=== PATIENT | male | born 1940 | race Caucasian/White ===

== ENCOUNTER 2019-04-26 18:08 | Emergency (ER) | payer MEDICARE ==
[~2019-04-26] VITALS: Ht 177.8 cm; Wt 90.0 kg
[2019-04-26 18:16] VITALS: Ht 177.8 cm; Wt 90.0 kg
[2019-04-26] MEDS ORDERED: BACITRACIN 0.9 GM OINT TOP ONE (18:30)
[2019-04-26] MEDS ORDERED: DIPHTH/TET/ACEL PERTUSS (ADULT) 0.5 ML VIAL IM* ONE (18:30)
[2019-04-26 20:30] VITALS: BP 128/61; PULSE 67; RESP 22
--- NOTE | 2019-04-26 20:37 | ERD ---
ER Documentation Chief Complaint Chief Complaint BIBA 40 for syncopal episode while doing yard work HPI This is a 79-year-old male with a past medical history of COPD, coronary artery disease status post CABG who is presenting after a syncopal event. The patient was out in the heat using a lawnmower and doing yard work when he suddenly felt very faint. He went to sit down on the porch, but he slipped off the porch and hit his head. The patient does not know how long he was out for, but after he woke up, he felt very weak. He was able to crawl into the house and call an ambulance. The patient was given IV fluids in route to the hospital, and he reports significant improvement of his lightheadedness and weakness. The pa tient did sustain an abrasion to the right forehead. He endorses tenderness around the abrasion, but otherwise has no headache. He does not know when his last tetanus shot was. He has no vision changes. The patient did not have any focal deficits. He does not endorse any weakness or numbness or tingling to the face or extremities. He has no chest pain or trouble breathing. He is not diaphoretic. He is not nauseated. He does not endorse any other alleviating or exacerbating factors. ROS All systems reviewed and are negative except as per history of present illness. Allergies Allergies: Coded Allergies: Penicillins (Verified Allergy, Unknown, 04/26/19) PMhx/Soc History of Surgery: Yes (CABG) Anesthesia Reaction: No Hx Neurological Disorder: No Hx Respiratory Disorders: Yes (COPD) Hx Cardiac Disorders: Yes (Coronary artery disease) Hx Psychiatric Problems: No Hx Miscellaneous Medical Probl: Yes (Chronic kidney disease) Hx Alcohol Use: No Hx Substance Use: No Hx Tobacco Use: No Smoking Status: Never smoker FmHx Family History: No diabetes Physical Exam Vitals Vital Signs Date Temp Pulse Resp B/P (MAP) Pulse Ox O2 O2 Flow FiO2 Time Delivery Rate 04/26/19 68 14 116/60 99 Room Air 18:28 (78) 04/26/19 98.3 79 16 112/75 100 18:16 (87) Physical Exam Const: No apparent distress, well-developed, well-nourished Head: Normocephalic. Right forehead abrasion, no laceration. No enriquez sign. Eyes: Normal Conjunctiva. Extraocular movements intact. Pupils equal, round and reactive to light. No raccoon eyes ENT: Normal External Ears, Nose and Mouth. No hemotympanum. Neck: No midline cervical spine tenderness. Full range of motion. No meningismus. Resp: Clear to auscultation bilaterally, No wheezes, rales or rhonchi Cardio: Regular rate and rhythm. No murmurs, rubs or gallops Abd: Soft, non tender, non distended. Normal bowel sounds Skin: No petechiae or rashes Back: No midline tenderness. No step-offs or deformities. No CVA tenderness Ext: No cyanosis, or edema Neur: Awake and alert, oriented 4. Cranial nerves intact. No facial droop. Normal strength, sensation and coordination. Psych: Normal Mood and Affect Result Diagram: 04/26/19190004/26/191900 Results 24 hrs Laboratory Tests Test 04/26/19 19:01 White Blood Count 13.7 10^3/ul Red Blood Count 4.63 10^6/ul Hemoglobin 13.9 g/dl Hematocrit 39.8 % Mean Corpuscular Volume 86.0 fl Mean Corpuscular Hemoglobin 30.0 pg Mean Corpuscular Hemoglobin Concent 34.9 g/dl Red Cell Distribution Width 12.5 % Platelet Count 164 10^3/UL Mean Platelet Volume 10.5 fl Immature Granulocytes % 0.400 % Neutrophils % 87.6 % Lymphocytes % 6.0 % Monocytes % 4.9 % Eosinophils % 0.8 % Basophils % 0.3 % Nucleated Red Blood Cells % 0.0 /100WBC Immature Granulocytes # 0.050 10^3/ul Neutrophils # 12.0 10^3/ul Lymphocytes # 0.8 10^3/ul Monocytes # 0.7 10^3/ul Eosinophils # 0.1 10^3/ul Basophils # 0.0 10^3/ul Nucleated Red Blood Cells # 0.0 10^3/ul Sodium Level 139 mmol/L Potassium Level 4.3 mmol/L Chloride Level 105 mmol/L Carbon Dioxide Level 26 mmol/L Anion Gap 8 Blood Urea Nitrogen 39 mg/dl Creatinine 2.52 mg/dl Est Glomerular Filtrat Rate mL/min mL/min Glucose Level 116 mg/dl Calcium Level 9.5 mg/dl Troponin I < 0.012 ng/ml B-Type Natriuretic Peptide 271 PG/ML Current Medications Medications Dose Sig/Luba Start Time Status Last (Trade) Ordered Route PRN Stop Time Admin Dose Reason Admin Diphtheria/ 0.5 ml ONCE ONCE 04/26/19 DC 04/26/19 Tetanus/Acell IM* 18:30 04/26/19 18:36 Pertussis 18:31 (Adacel) Bacitracin 1 applic ONCE ONCE 04/26/19 DC 04/26/19 (Bacitracin TOP 18:30 04/26/19 18:36 Oint (Ud)) 18:31 Procedures/MDM MDM The patient's presentation warrants further investigation. Previous medical records, if available, were reviewed. LABS The patient's laboratory testing was obtained and reviewed. No emergent treatment was required unless described below. CBC: Leukocytosis, likely reactive, low clinical suspicion for an infection. Mild normocytic anemia, not emergent. No E/o thrombocytopenia Chemistry: No E/o severe acidosis or alkalosis or diabetic ketoacidosis. Creatinine is elevated with known chronic kidney disease. Troponin: No E/o acute ischemia BNP: No E/o heart failure EKG EKG read by me: Rate/Rhythm: Regular rate and rhythm at a rate of 67 Intervals: Normal QRS and QTc. Prolonged CO interval indicating a first- degree AV block [place]: Right shifted Impression: Nonspecific repolarization changes without evidence of acute ischemia or arrhythmia IMAGING Imaging and Radiology interpretation reviewed. CT Head FINDINGS: No acute intracranial hemorrhage is identified. There is no mass effect or midline shift. No extra-axial fluid collection is seen. The ventricles and sulci are within normal limits for size and configuration for the patient's provided age of 79-year is, generalized appropriate cerebral tissue loss is present. There is extensive low attenuation of the subcortical and periventricular white matter probably chronic small vessel ischemic disease but vasculitis and demyelination are differential diagnostic possibilities. The density of the brain is within normal limits. Brenner-white differentiation is preserved. The osseous structures are unremarkable. Chronic-appearing ethmoid and right sphenoid sinus mucosal thickening is present The mastoid air cells and remaining visualized paranasal sinuses are clear. Atherosclerotic calcification of the cavernous internal carotid arteries is present IMPRESSION: 1. Generalized age-appropriate cerebral tissue loss with extensive low attenuation of the cerebral white matter probably the sequela of chronic small vessel ischemia but without evidence for acute intracranial abnormality or mass effect. 2. Mild chronic-appearing ethmoid and sphenoid sinus disease. 3. Cavernous internal carotid artery atherosclerotic calcification. Electronically viewed and signed by Physician Omkar on 04/26/2019 19:26 CT C-Spine FINDINGS: Vertebral bodies: Stature is preserved at every level without evidence of compression deformity. The lordosis is straightened. There is normal mineralization and trabeculation. The predental space is mildly narrowed. Ant erior enthesopathy is minimal at C5-C7. The C1 ring is intact. Both occipital condyles are normal in position. Central canal and cervical spinal cord: No abnormal density within the spinal cord is evident and no intraspinal masses are delineated. C2-3: The disk is within normal limits. The facet joints are normal. The uncovertebral joints and foramina are unremarkable.No posterior element fracture is identified. C3-4: The disk is within normal limits. Severe right facet arthropathy is present with mild left facet degeneration and trace anterolisthesis. The uncovertebral joints and foramina are unremarkable.No posterior element fracture is identified C4-5: The disk is within normal limits. Severe left and mild right facet arthropathy is present. The uncovertebral joints and foramina are unremarkable.No posterior element fracture is identified C5-6: Moderate degenerative disc narrowing with osteophyte and disc complex asymmetric to the right. Moderate right and mild left facet arthropathy is present. Uncovertebral hypertrophy causes severe right foraminal stenosis the le ft foramen is patent .No posterior element fracture is identified C6-7: Mild to moderate degenerative disc narrowing with small osteophyte and disc complex without significant central canal stenosis. Severe left and moderate facet arthropathy is present. Right foraminal stenosis from disc materi al is suggested, the left foramen is believed to be patent .No posterior element fracture is identified C7-T1: The disk is within normal limits. The facet joints are normal. The uncovertebral joints and foramina are unremarkable.No posterior element fracture is identified Non spine related findings: No abnormalities of significance are seen. IMPRESSION: 1. There is no evidence of cervical spine fracture. 2. Degenerative disc narrowing is greatest at C5-6 and C6-7 without significant central canal stenosis, disc material is believed to contribute to right C6-7 foraminal stenosis and may correlate with the right C7 radiculopathy pattern. 3. Severe right foraminal stenosis at C5-6 caused by facet arthropathy and uncovertebral hypertrophy. 4. Trace anterolisthesis at C3-4 related to severe facet arthropathy greater on the right. 5. The lordosis is mildly straightened which may be from positioning but cannot exclude muscle spasm. Electronically viewed and signed by Physician Omkar on 04/26/2019 19:30 CXR FINDINGS: The cardiomediastinal silhouette is mildly enlarged . The lungs are clear. There is no evidence for pleural effusion, pneumothorax or pulmonary vascular congestion. Sternotomy wires are present. There is no evidence of acute osseous abnormality. Calcification of the aorta is noted. IMPRESSION: 1. Post thoracotomy changes and cardiac silhouette enlargement without evidence for acute intrathoracic pathology. 2. Aortic atherosclerosis is present. Electronically viewed and signed by Physician Omkar on 04/26/2019 19:31 TREATMENT/DISPOSITION The patient syncopized and had a ground-level fall, hitting his head. He sustained an abrasion to the right forehead. He was provided a tetanus shot. The wound was cleaned and bacitracin was applied. No laceration. Was required. The patient was evaluated fully without evidence of emergent posttraumatic pathology. The patient's CT imaging of the head and cervical spine are unremarkable. The patient has no focal deficits. I've low suspicion for intracranial pathology. I have low suspicion for cerebral ischemia or intracranial hemorrhage. The patient has no cervical spine tenderness. He can move his neck in all directions without any pain. As stated above, he does not have any focal deficits. He is not altered or intoxicated. He does not have any distracting injuries. The patient's cervical spine was clinically cleared using the [place] C-spine rule. The patient does not have any saddle anesthesia. He has not been incontinent of urine or stool. He has not had any retention of urine or stool. I have low suspicion for spinal cord injury. There is no evidence of cardiothoracic or abdominal injury. I have low suspicion for extremity injury. There is no evidence of any penetrating i njuries. The patient was also evaluated for syncope. I do suspect that the patient syncopized due to the heat outside. The patient may have also been orthostatic at that time. Currently, the patient has a reassuring physical exam. The patient is not currently clinically orthostatic. The patient is not dizzy. I have decreased suspicion for vertigo. The patient has no signs of emergent or symptomatic anemia. The patient does not have any emergent electrolyte or metabolic emergencies. I have decrease suspicion for a thyroid disorder. The patient is not toxic appearing. I have decreased suspicion for an infectious etiology of symptoms. The patient's EKG and troponin are reassuring. I have low suspicion for acute coronary syndrome. I do not see evidence of any emergent cardiac arrhythmia, which includes but is not limited to heart block, Brugada syndrome or WPW. The patient has no heart murmurs or rales. There is no evidence of cardiomegaly on exam or chest xray. I have low suspicion for hypertrophic cardiomyopathy. I do not see evidence of CHF. The patient does not endorse any chest or pleuritic pain. The history is negative for bleeding or clotting disorders. The patient has not been involved in any recent prolonged trips or surgeries or hospitalizations. The patient has no calf tenderness or swelling. I have decreased suspicion for PE as the etiology of symptoms. The patient has no focal deficits. The neurologic exam is reassuring. I have decreased suspicion for cerebral ischemia. There was no trauma or injury. There is no personal or family history of cerebral aneurysm. I have decreased suspicion for SAH or other ICH. I have low suspicion for temporal arteritis, cav ernous venous thrombosis, subdural hematoma, epidural hematoma, meningitis. The [place] Syncope Rule was applied and the patient was found to be low risk for a serious outcome. The patient was treated with IV fluids with significant improvement of his symptoms. DISCHARGE Upon reevaluation of the patient, symptoms have improved. No emergent diagnoses were identified. At this time, I feel that the patient stable for discharge. The patient was instructed to follow-up with a primary care physician in 1-3 days. The patient will be given strict precautions with which to return to the emergency department. Prescriptions: None Disclaimer: Inadvertent spelling and grammatical errors are likely due to EHR/dictation software use and do not reflect on the overall quality of patient care. Note that the electronic time recorded on this note does not necessarily reflect the actual time of the patient encounter. Departure Diagnosis: Primary Impression: Syncope Syncope type: heat syncope Encounter type: initial encounter Qualified Codes: T67.1XXA - Heat syncope, initial encounter Additional Impressions: Fall from ground level Head trauma Encounter type: initial encounter Qualified Codes: S09.90XA - Unspecified injury of head, initial encounter Forehead abrasion Encounter type: initial encounter Qualified Codes: S00.81XA - Abrasion of other part of head, initial encounter Leukocytosis Leukocytosis type: unspecified Qualified Codes: D72.829 - Elevated white blood cell count, unspecified Normocytic anemia Elevated serum creatinine Chronic kidney disease Chronic kidney disease stage: unspecified stage Qualified Codes: N18.9 - Chronic kidney disease, unspecified Condition: Stable Patient Instructions: Anemia, Fall Prevention, Head Trauma (Traumatic Brain Injury), Syncope, Unk Cause Additional Instructions: Thank you for for coming to [facility] for your care today. Please ask your nurse or provider if you have questions about your care today an d do not leave until all your questions have been answered. Please use any medications given as directed and follow-up with your doctor (or the doctor you were referred to) in the next 1-3 days. If you do not have a primary care doctor you may follow up at the [facility] or counts include 234 beds at the [facility] (listed below). You may also use motrin and tylenol as needed for fever and/or pain unless instructed otherwise by your provider or nurse. Indications for more urgent follow-up have been discussed, but you may return to the Emergency Department at ANY time for any worrisome or worsening symptoms. If you have abdominal pain, please know that no test or exam you received is perfect and you should follow up within 8 hours for continued pain. If you had any imaging studies today, such as an X-Ray or CT Scan, these studies will be reviewed later by a radiologist. You will be called if there are imp ortant findings that were not identified today, so make sure the contact information you provided at registration is correct. If you received any narcotic pain control medicine today, such as Vicodin, Morphine or Dilaudid, your coordination and judgment may be affected for a number of hours. Please do not drive or operate heavy machinery, and you may want someone to assist you at home. If you were given a prescription for narcotic medication, be aware that it is very addictive- use sparingly and only if necessary. PLEASE SEEK FURTHER EVALUATION AND MANAGEMENT AT YOUR DOCTORS OFFICE WITHIN THE NEXT 1-3 DAYS. IT IS YOUR RESPONSIBILITY TO MAKE AN APPOINTMENT FOR FOLOW-UP CARE. IF YOU HAVE A PRIMARY DOCTOR, PLEASE CALL THEIR OFFICE TO SCHEDULE AN APPOINTMENT FOR FOLLOW UP. IF YOU DO NOT HAVE A PRIMARY DOCTOR YOU CAN CALL OUR PHYSICIAN REFERRAL HOTLINE AT IF YOU CAN NOT AFFORD TO SEE A PHYSICIAN YOU CAN CHOSE FROM THE FOLLOWING [facility] CLINICS: [facility] [address] [facility] [address] [facility] [address] [facility] [address] [facility] [id number] [facility]. [facility]. [address] EFRA SOUZA MD Apr 26, 2019 20:23
== END 2019-04-26 20:53 | disposition home or self-care (01) ==
LOC: E/R 18:08
DX: T67.1XXA Heat syncope, initial encounter (principal); J44.9 Chronic obstructive pulmonary disease, unspecified; I25.10 Atherosclerotic heart disease of native coronary artery without angina pectoris; S00.81XA Abrasion of other part of head, initial encounter; D72.829 Elevated white blood cell count, unspecified; D64.9 Anemia, unspecified; N18.9 Chronic kidney disease, unspecified; R79.89 Other specified abnormal findings of blood chemistry; W01.198A Fall on same level from slipping, tripping and stumbling with subsequent striking against other object, initial encounter; Y92.89 Other specified places as the place of occurrence of the external cause; Z23 Encounter for immunization; Z95.1 Presence of aortocoronary bypass graft
CPT/HCPCS: 36415; 70450; 71045; 72125; 80048; 83880; 84484; 85025; 90471; 90715; 93005